=== PATIENT | female | born 1960 | race Caucasian/White ===

== ENCOUNTER 2017-01-25 17:18 | Outpatient (CLI) | payer SELFPAY ==
--- NOTE | 2017-01-25 18:16 | XRAY Preliminary Report ---
Exam: XR CHEST 2 VIEW PA/LAT IMPRESSION: 1. Pleural effusions, left greater than right. 2. Large heart without signs of CHF. GABY The call report notification system was initiated by Dr. Peter Guzman at 18:12 hrs on 01/25/17. The above findings were discussed with Dr. Gan by Dr. Peter Guzman at 18:14 hrs on 01/25/17. SITE ID: [id number]
--- NOTE | 2017-01-25 18:18 | XRAY Report ---
EXAM: CHEST RADIOGRAPHY EXAM DATE: 01/25/2017 05:56 PM. CLINICAL HISTORY: HEART FAILURE. SHORTNESS OF BREATH. COPD. COMPARISON: None. TECHNIQUE: 2 views. FINDINGS: Lungs/Pleura: No focal opacities evident. Pleural effusions, left greater than right. No pneumothorax . Normal volumes. Mediastinum: Large heart. Other: No compression fractures. IMPRESSION: 1. Pleural effusions, left greater than right. 2. Large heart without signs of CHF. RADIA The call report notification system was initiated by Dr. Peter Guzman at 18:12 hrs on 01/25/17. The above findings were discussed with Dr. Gan by Dr. Peter Guzman at 18:14 hrs on 01/25/17. Referring Provider Line: [phone] SITE ID: [id number]
== END 2017-01-25 17:19 | disposition home or self-care (01) ==
LOC: DI 17:18
PROVIDERS: ATTEND Specialist
DX: I50.9 Heart failure, unspecified (principal); E03.9 Hypothyroidism, unspecified; J44.9 Chronic obstructive pulmonary disease, unspecified
CPT/HCPCS: 71020

== ENCOUNTER 2017-01-25 17:55 | Outpatient (CLI) | payer SELFPAY ==
[2017-01-25 18:34] LABS: BILIRUBIN,URINE NEGATIVE (NEGATIVE)
[2017-01-25 18:40] LABS: BASOPHILS # (AUTO) 0.1 10^3/uL (0.0-0.1); BASOPHILS % (AUTO) 0.8 %; EOSINOPHILS % (AUTO) 0.5 %; HCT - HEMATOCRIT 26.3 % (37.0-47.0); HGB - HEMOGLOBIN 7.7 g/dL (12.0-16.0); LYMPHOCYTES # (AUTO) 0.7 10^3/uL (1.5-3.5); LYMPHOCYTES % (AUTO) 7.8 %; MEAN CORPUSCULAR HEMOGLOBIN 18.8 pg (27.0-31.0); MEAN CORPUSCULAR HGB CONC 29.3 g/dL (32.0-36.0); MEAN CORPUSCULAR VOLUME 64.3 fL (81.0-99.0); MEAN PLATELET VOLUME 6.1 fL (7.9-10.8); MONOCYTES # (AUTO) 0.8 10^3/uL (0.0-1.0); MONOCYTES % (AUTO) 8.9 %; NEUTROPHILS # (AUTO) 7.2 10^3/uL (1.5-6.6); NUCLEATED RED BLOOD CELLS AUTO 0.8 /100WBC; RED BLOOD COUNT 4.09 10^6/uL (4.20-5.40); RED CELL DISTRIBUTION WIDTH 24.4 % (12.0-15.0); UNCORRECTED WHITE BLOOD COUNT 8.8 x10^3/uL; WHITE BLOOD COUNT 8.8 x10^3/uL (4.8-10.8)
[2017-01-25 18:51] LABS: ALBUMIN/GLOBULIN RATIO 0.8 (1.0-2.2); BILIRUBIN,TOTAL 0.8 mg/dL (0.2-1.0); BUN - BLOOD UREA NITROGEN 6 mg/dL (6-20); CALCIUM 8.6 mg/dL (8.5-10.3); CARBON DIOXIDE - CO2 22 mmol/L (21-32); CHLORIDE 87 mmol/L (101-111); CHOL/HDL RATIO 2.2 (<4.4); CHOLESTEROL 141 mg/dL; CREATININE 0.5 mg/dL (0.4-1.0); GFR - MDRD 127 (>89); GLUCOSE 99 mg/dL (70-100); HDL CHOLESTEROL 64 mg/dL; LDL/HDL RATIO 0.8 (<4.4); POTASSIUM 4.3 mmol/L (3.5-5.0); SODIUM 124 mmol/L (135-145); TRIGLYCERIDES 128 mg/dL; VLDL CHOLESTEROL 26 mg/dL
[2017-01-25 18:53] LABS: HEMOGLOBIN A1C 0.31 g/dL
[2017-01-25 21:33] LABS: PLATELET ESTIMATE, MANUAL NORMAL (130-450,000) (NORMAL); PLATELET MORPHOLOGY NORMAL APPEARANCE (NORMAL)
== END 2017-01-25 17:56 | disposition home or self-care (01) ==
LOC: LAB 17:55
PROVIDERS: ATTEND Specialist
DX: E11.9 Type 2 diabetes mellitus without complications (principal); I10 Essential (primary) hypertension; E03.9 Hypothyroidism, unspecified; I50.9 Heart failure, unspecified; J44.9 Chronic obstructive pulmonary disease, unspecified
CPT/HCPCS: 36415; 80053; 80061; 81003; 82043; 82570; 83036; 83880; 84443; 85025

== ENCOUNTER 2017-02-10 15:10 | Outpatient (CLI) | payer OTHER | END 2017-02-10 15:11 | disposition critical access hospital (66) | LOC: EMS 15:10 | PROVIDERS: ATTEND Surgery | DX: I46.9 Cardiac arrest, cause unspecified (principal) | CPT/HCPCS: A0425; A0433 ==

== ENCOUNTER 2017-02-10 15:26 | Emergency (ER) | payer OTHER ==
--- NOTE | 2017-02-10 16:06 | ED Physician Documentation ---
PD HPI CPR - Stated complaint Stated Complaint: CPR - Chief complaint Chief Complaint: Critical Care - Additional information Additional information: hx from EMS and friend witnessed collapse at home per EMS CPR was started right away but per friend who came to the ER, the neighbor who was present with pt ran to call for help and an ambulaance and up to 10 min may have passed before CPR was started EMS arrived on scene pt in asystole CPR continued ISHAN tube placed and verified by EMS IO placed pt given epi X 5 and has int PEA, bradycardic wide complex per rhythm strips shown to me arrives back in asystole again CPR continued abd bloated but obdulio BS with bagging ISHAN tube have a 6th dose of epi and an amp of bicarb continued CPR rechecked and pt in asytsole in 2 leads no cardiac activity on bedside sono at this pt pt has been down at least 50 min - she is unresponsive, her pupils are fixed, and she is in asystole with no cardiac activity despite excellent efforts by EMS code called pt unresponsive pupils fixed no corneal reflex no spont resp no heart beat auscultated no pulse pt pronounced at 1539 I called her brother Dmitri Killian in [place] and updated - he req assistance with homes etc, house sup and SW to provide info PD MEDICAL DECISION MAKING - ED course ED course: per neighbor pt has been declining recently - edema cough and SOA had been seen in a walk in clinic dx with CHF prescribed diuretic and had labs and an echo ordered so presume arrest was due to ACS though no way to know for certain Departure - Departure Disposition: 20 Clinical Impression: Cardiac arrest Discharge Date/Time: 02/10/17 17:53
[2017-02-10] MEDS ORDERED: SODIUM BICARBONATE 8.4% 50 MEQ/50 ML VIAL IV ONE (16:10)
[2017-02-10] MEDS ORDERED: EPINEPHrine ABBOJECT 1 MG/10 ML SYRINGE IVP ONE (16:10)
== END 2017-02-10 17:53 | disposition expired ==
LOC: EDUNIT# → EDBD → ED 15:26 → SUPCPDRO 15:26 → ED 17:53
DX: I46.9 Cardiac arrest, cause unspecified (principal); I50.9 Heart failure, unspecified
CPT/HCPCS: 92950; 99282; 99284